=== PATIENT | female | born 2005 | race Hispanic/Latino ===

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

== ENCOUNTER 2025-06-24 16:15 | Emergency (ER) | payer OTHER, SELFPAY ==
[2025-06-24 16:30] VITALS: BP 109/62; PULSE 78; RESP 16; TEMP 36.9; O2SAT 100
--- NOTE | 2025-06-24 16:44 | ED.NAVMDI ---
HPI - Nausea/Vomiting/Diarrhea General Chief complaint: Nausea/Vomiting/Diarrhea Stated complaint: stomach issues Time Seen by Provider: 06/24/25 16:44 Source: patient Mode of arrival: ambulatory Limitations: no limitations History of Present Illness HPI Narrative: 20 yo F presents with c/o diarrhea for 1 wk. Bright red blood in stool for the past 2 to 3 days. Pain to LLQ constant with intermittent ABD cramping prior to episode of diarrhea. About 2 wks ago was very constipated. Took laxatives to have BM. hx of hemorrhoids but denies any hemorrhoids now. AFebrile. Does not have a PCP. All systems reviewed and negative except as noted above. Related Data Home Medications ?Medication ?Instructions ?Recorded ?Confirmed ?Last Taken ?Type No Home Medications 06/24/25 06/24/25 Unknown History Allergies Allergy/AdvReac Type Severity Reaction Status Date / Time No Known Allergies Allergy Mild Verified 06/24/25 16:43 [facility] Past Medical History Medical History (Updated 06/24/25 @ 17:01 by Millie Nunez NP) Paresthesia Left-sided headache Hemiplegic migraine Healthy female adult Surgical History Surgical History No history of previous surgery Family History Family History (Updated 09/13/23 @ 10:50 by Danielle Lozano) Grandparent Breast cancer Diabetes mellitus Father Alcoholism in family Mother Alcoholism in family Depression Sibling Depression Social History Social History (Updated 09/13/23 @ 10:51 by Danielle Lozano) Social History: Surrogate medical decision maker: Nubia Mcduffie, sister. Code status: Full code. Smoking status: Never smoker Second hand tobacco smoke exposure: No Alcohol intake: current Alcohol use details: Pt drinks Margaritas a couple times a month. 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 There is no relevant family history pertinent to the presenting complaint. Exam Narrative: GENERAL: This is a well-nourished, well-developed patient, in no apparent distress. HEAD: normocephalic, atraumatic. EYES: PERRL. Sclera clear/white. Vision is grossly intact. EARS: External ears normal NOSE: External nose normal NECK: Neck supple, non-tender without lymphadenopathy, masses or thyromegaly. CARDIOVASCULAR: Regular rate and rhythm without murmurs, gallops, or rubs. RESPIRATORY: Clear to auscultation. Breath sounds equal bilaterally. No wheezes, rales, or rhonchi. GASTROINTESTINAL: Abdomen soft, left lower quadrant tenderness, nondistended. Bowel sounds are hypoactive. No hepato-splenomegaly, or palpable masses. No guarding. SKIN: warm, Dry, intact with no suspicious lesions or rash, good texture and turgor. NEURO: awake, alert, and oriented to person, place and time. There were no obvious focal neurologic abnormalities. EXTREMITIES: No joint tenderness, effusion, or edema noted. Course Course Level of Care: Express Care Visit Vital Signs Vital signs: reviewed Transfer Transfered to: [facility] Transportation: Other (private vehicle) Transfer rationale: rule out diverticulitis. diarrhea for 1 wk, blood in stool for 3 days. LLQ pain Accepting physician: Dr. Rocha MDM - Nausea/Vomiting/Diarrhea MDM Narrative Medical decision making narrative: transferring patient to ER for CT scan to rule out diverticulitis. Diarrhea, blood in stool , left lower quadrant pain. Discharge Plan Discharge Clinical Impression: Bloody diarrhea, Acute left lower quadrant pain Patient Disposition: Acute Care Hospital Condition: Stable Patient Language: Marshallese Prescriptions: No Action No Home Medications Follow-up/Referrals: Hailey Arshad MD [Primary Care Provider, [facility]] Time of Disposition: 17:01
== END 2025-06-24 17:04 | disposition short-term general hospital (02) ==
PROVIDERS: Emergency Provider Nurse Practitioner Family; PCP Family Medicine
DX: R19.7 Diarrhea, unspecified (principal); R10.32 Left lower quadrant pain
CPT/HCPCS: 99212; G0463

== ENCOUNTER 2025-06-24 17:31 | Emergency (ER) | payer OTHER, SELFPAY ==
--- NOTE | ~2025-06-24 | CT_ITS ---
EXAMINATION: CT abdomen pelvis w con DATE: 06/24/2025 18:58 INDICATION: Bloody diarrhea TECHNIQUE: Computed tomography (CT) of the abdomen and pelvis was performed with 100 cc Omnipaque 350 intravenous contrast. The dose-length product was 563.52 mGy-cm. Automated exposure control and iterative reconstruction technique were employed. COMPARISON: None. FINDINGS: Lung bases are unremarkable. Heart size normal. No significant pleural or pericardial effusion. The liver, spleen, pancreas, adrenal glands and kidneys are unremarkable. Gallbladder is present. No lymphadenopathy. Nonobstructive bowel gas pattern. No focal bowel abnormality is seen. No abnormal pelvic masses or fluid collections. No acute osseous abnormality. IMPRESSION: 1. No acute abdominal abnormality. Reviewed, dictated and finalized at location O.
[2025-06-24 17:44] VITALS: BP 146/66; PULSE 100; RESP 16; TEMP 36.6; O2SAT 100
--- OUTSIDE RECORDS SUMMARY | 2025-06-24 18:16 | XMS_ITS | Clinical Summary ---
Author Organization [facility] [address] [place] [address] [address] [address] [place] [address] Care Team Providers Care Job Service Specialist Name Role Phone No, Physician Primary Care Provider Allergies No known active allergies Social History Tobacco Use Types Packs/Day Years Used Date Smoking Tobacco: Never Assessed Personal Safety Answer Date Recorded Have you ever been in or are you currently in a harmful physical or emotional relationship or is someone making you feel afraid or unsafe? 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 Gender Identity Not on file Sexual Orientation Not on file Obstetrics History Last Filed Vital Signs Vital Sign Reading Time Taken Comments Blood Pressure 108/51 03/23/2025 3:58 AM CDT Pulse 63 03/23/2025 3:58 AM CDT Temperature 36.4 C (97.6 F) 03/23/2025 3:58 AM CDT Respiratory Rate 18 03/23/2025 3:58 AM CDT Oxygen Saturation 100% 03/23/2025 3:58 AM CDT Inhaled Oxygen Concentration - - Weight 81.6 kg (180 lb) 03/23/2025 3:56 AM CDT Height 170.2 cm (5' 7) 03/23/2025 3:56 AM CDT Body Mass Index 28.19 03/23/2025 3:56 AM CDT Plan of Treatment Health Maintenance Due Date Last Done Comments Cervical Cancer Screening 2004 Depression Screening 2004 Hepatitis C Screening 2004 HPV Vaccines (1 - 3-dose series) 02/04/2019 Meningococcal B Vaccine (1 o f 2 - Standard) 2020 Regular Well Visit/Exam 18-64 02/04/2022 Covid-19 Vaccine (2023-2 5 season) 2024 11/12/2021, 03/17/2021, 02/24/2021 Influenza Vaccine (#1) 2025 DTaP/Tdap/Td Vaccine (7 - Td or Tdap) 07/24/2029 07/24/2019, 09/14/2008, 06/22/2006, Additional history exists Pneumococcal vaccine <65 Completed 005, 2004, 2004, Additional history exists Hepatitis B Screening Completed 06/22/2006 , 2004, 2004, Additional history exists Varicella Vaccines Completed 06/08/2009, 05/30/2005 Meningococcal Vaccine Completed 07/02/2021, 019 Additional Health Concerns Infection Onset Date Last Indicated MDR gram neg/ESBL Comment:Patients who received care at a healthcare facility outside of the [place] will be placed in Contact Precautions until infection or colonization with specific highly resistant bacteria can be ruled out. Infection Prevention will arrange screening. Please contact Infection Prevention. 03/23/2025 03/23/2025 Insurance [employer] COVENTRY HMO/POS [employer] COVENTRY HMO/POS Care Teams Job Service Specialist Relationship Specialty Start Date End Date No, Physician PCP - General 03/23/25
[2025-06-24 18:23] LABS: BEDSIDEPREGUCG Negative (Negative)
[2025-06-24 18:27] LABS: Hematocrit 42.4 % (37.0-47.0); Hemoglobin 13.7 g/dL (12.0-15.0); Immature Granulocyte Percent A 0.3 % (0-0.5); Lymphocytes Absolute Auto 3.56 K/mm3 (0.9-3.2); Mean Corpuscular HGB Conc 32.3 g/dl (32-36); Mean Corpuscular Hemoglobin 28.4 pg (26-34); Mean Corpuscular Volume 87.8 fl (80-100); Nucleated Red Blood Cells Absolute Auto 0.000 K/mm3 (0.0-0.012); Nucleated Red Blood Cells Perc 0.0 % (0.0-0.2); Platelet Count Result 344 k/mm3 (150-375); Red Blood Count 4.83 M/mm3 (4.2-5.4); White Blood Count 9.8 K/mm3 (4.5-10.0)
[2025-06-24 18:37] LABS: Add Urine Microscopic? NO; Appearance Urine Clear (Clear); Glucose Urine UA Negative (Negative); Leukocyte Esterase Ur Negative LEU/UL (Negative); Nitrate Urine Negative (Negative); Specific Grav Ur 1.017 (1.001-1.035)
[2025-06-24 18:38] LABS: Alanine Aminotransferase 21 U/L (6-35); Albumin Level 4.8 g/dL (3.5-5.1); Alkaline Phosphatase 64 U/L (38-126); Anion Gap 12 mmol/L (4-12); Aspartate Amino Transferase 32 U/L (14-36); Bilirubin,Total 0.4 mg/dL (0.2-1.3); Blood Urea Nitrogen 10 mg/dL (7-17); Calcium 9.2 mg/dL (8.4-10.2); Carbon Dioxide 22 mmol/L (22-30); Chloride 104 mmol/L (98-107); Estimated Glomerular Filt Rate > 60; Glucose 104 mg/dL (65-110); Lipase 126 U/L (23-300); Potassium 3.8 mmol/L (3.4-5.0); Sodium 138 mmol/L (137-145); Total Protein 8.5 g/dL (6.3-8.2)
--- NOTE | 2025-06-24 18:53 | ED.ABDPAIN ---
HPI - Abdominal Pain General Chief Complaint: Abdominal Pain Stated Complaint: CONSTIPATION,HEMORRHOIDS BLEEDING Time Seen by Provider: 06/24/25 18:07 Source: patient Mode of arrival: ambulatory Limitations: no limitations History of Present Illness HPI narrative: This is a 20-year-old female that presents to the emergency department for diarrhea. Ongoing over the last week. Seen in urgent care, sent to the ER for further evaluation. Reports left lower quadrant abdominal discomfort. Reports bright red blood per rectum. History of hemorrhoids. Denies fevers or vomiting Related Data Home Medications ?Medication ?Instructions ?Recorded ?Confirmed ?Last Taken ?Type No Home Medications 06/24/25 06/24/25 Unknown History Allergies Allergy/AdvReac Type Severity Reaction Status Date / Time No Known Allergies Allergy Mild Verified 06/24/25 17:32 Review of Systems Review of Systems: All systems reviewed & are unremarkable except as noted in HPI and below PMFSH Past Medical History Medical History (Updated 06/24/25 @ 19:45 by Racquel Briseno PA-C) Paresthesia Left-sided headache Hemiplegic migraine Healthy female adult Surgical History Surgical History No history of previous surgery Family History Family History (Updated 09/13/23 @ 10:50 by Danielle Lozano) Grandparent Breast cancer Diabetes mellitus Father Alcoholism in family Mother Alcoholism in family Depression Sibling Depression Social History Social History (Updated 09/13/23 @ 10:51 by Danielle Lozano) Social History: Surrogate medical decision maker: Nubia Mcduffie, sister. Code status: Full code. Smoking status: Never smoker Second hand tobacco smoke exposure: No Alcohol intake: current Alcohol use details: Pt drinks Margaritas a couple times a month. 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 HEAD: Normocephalic, atraumatic. EYES: EOMI. CHEST: Clear to auscultation. No respiratory distress. No wheezes rales or rhonchi HEART: Regular rate and rhythm. No murmur heard. Normal peripheral pulses. ABDOMEN: Soft, nontender, nondistended, normal active bowel sounds. EXTREMITIES: Normal range of motion. No edema. SKIN: Warm, dry, no rash. NEURO: No focal deficits. Alert and oriented x3. PSYCH: Normal mood and affect RECTAL: External hemorrhoid present, nonthrombosed, no active bleeding Course Course Emergency Course: patient updated on her workup and agrees with plan of care Vital Signs Vital signs: Vital Signs Temperature 97.9 F 06/24/25 17:44 Pulse Rate 100 06/24/25 17:44 Respiratory Rate 16 06/24/25 17:44 Blood Pressure 146/66 H 06/24/25 17:44 Pulse Oximetry 100 06/24/25 17:44 Oxygen Delivery Room Air 06/24/25 17:44 Temperature 97.9 F 06/24/25 17:44 Pulse Rate 93 06/24/25 19:19 Respiratory Rate 16 06/24/25 19:19 Blood Pressure 108/62 06/24/25 19:19 Pulse Oximetry 100 06/24/25 19:19 Oxygen Delivery Room Air 06/24/25 17:44 MDM - Abdominal Pain MDM Narrative Medical decision making narrative: Patient presents to the ER for diarrhea, blood in the stool. She is afebrile and nontoxic appearing. Her vitals are stable. Cbc without leukocytosis. Metabolic panel and lipase without concerning findings. Urine without evidence of infection. test is negative. CT abdomen pelvis without acute findings. Patient updated on workup and agrees with plan of care. She will be given follow-up with gastroenterology. She was given warnings to return to the ER Differential Diagnosis Differential diagnosis: Likely diverticulitis and other (colitis, fissure, hemorrhoid) Lab Data Attestation: I reviewed the patient's lab results. 06/24/25 18:13 06/24/25 18:13 Labs: Lab Results 06/24/25 06/24/25 06/24/25 Range/Units 18:13 18:14 18:19 WBC 9.8 (4.5-10.0) K/mm3 RBC 4.83 (4.2-5.4) M/mm3 Hgb 13.7 (12.0-15.0) g/dL Hct 42.4 (37.0-47.0) % MCV 87.8 (80-100) fl MCH 28.4 (26-34) pg MCHC 32.3 (32-36) g/dl RDW 13.4 (11.5-14.5) % Plt Count 344 (150-375) k/mm3 MPV 10.7 H (7.4-10.4) fl Immature Gran % (Auto) 0.3 (0-0.5) % Neut % (Auto) 53.7 (45.5-73.1) % Lymph % (Auto) 36.4 (18.3-44.2) % [place] % (Auto) 7.2 (2.6-8.5) % Eos % (Auto) 1.7 (0-4.4) % Baso % (Auto) 0.7 (0.2-1.2) % Lymph # (Auto) 3.56 H (0.9-3.2) K/mm3 [place] # (Auto) 0.7 H (0.1-0.6) K/mm3 Eos # (Auto) 0.2 (0-0.3) K/mm3 Baso # (Auto) 0.1 (0.0-0.1) K/mm3 Abs Immat Gran (auto) 0.03 (0.00-0.031) K/mm3 Absolute Neuts (auto) 5.3 (1.3-6.7) K/mm3 Absolute Nucleated RBC 0.000 (0.0-0.012) K/mm3 Nucleated RBC % 0.0 (0.0-0.2) % Sodium 138 (137-145) mmol/L Potassium 3.8 (3.4-5.0) mmol/L Chloride 104 (98-107) mmol/L Carbon Dioxide 22 (22-30) mmol/L Anion Gap 12 (4-12) mmol/L BUN 10 (7-17) mg/dL Creatinine 0.60 L (0.7-1.0) mg/dL Estim Creat Clear Calc Not Reportable Estimated GFR > 60 (59 - ) Glucose 104 (65-110) mg/dL Calcium 9.2 (8.4-10.2) mg/dL Total Bilirubin 0.4 (0.2-1.3) mg/dL AST 32 (14-36) U/L ALT 21 (6-35) U/L Alkaline Phosphatase 64 (38-126) U/L Total Protein 8.5 H (6.3-8.2) g/dL Albumin 4.8 (3.5-5.1) g/dL Lipase 126 (23-300) U/L Urine Color Yellow (Yellow) Urine Appearance Clear (Clear) Urine pH 7.5 (5.0-9.0) Ur Specific [place] 1.017 (1.001-1.035) Urine Protein Negative (Negative) mg/dL Urine Glucose (UA) Negative (Negative) mg/dL Urine Ketones Negative (Negative) mg/dL Ur Blood (Man) Negative (Negative) Urine Nitrate Negative (Negative) Urine Bilirubin Negative (Negative) Urine Urobilinogen 0.2 (<2.0) mg/dL Leukocyte Esterase Rfl Negative (Negative) ETHAN/UL POC Urine HCG, Qual Negative (Negative) Imaging Data Radiologist's impression: ITS Impressions Abdomen/Pelvis CT 06/24/25 19:01 IMPRESSION: 1. No acute abdominal abnormality. Critical Care Time Critical Care Time Critical Care Time: No Discharge Plan Discharge Clinical Impression: Bright red blood per rectum Diarrhea Qualifiers: Diarrhea type: unspecified type Qualified Code(s): R19.7 - Diarrhea, unspecified Patient Disposition: Home Condition: Stable Instructions: Acute Diarrhea (ED) Additional Instructions: Return to the ER if you experience fever, abdominal pain with nausea and vomiting, you are unable to keep down liquids or solids, or any other symptoms that are concerning to you Follow up with gastroenterology for further evaluation Patient Language: Northern Irish Prescriptions: No Action No Home Medications Follow-up/Referrals: PHYSICIAN,MOTEL FRONT DESK ATTENDANT [Primary Care Provider, Internal Medicine] Kelechi Henderson MD [Physician, Gastroenterology]
--- NOTE | 2025-06-24 19:17 | PC.NURSE ---
Received report from HATTIE Kendrick for cont. of care. Pt AOx4 lying on stretcher, respirations even and unlabored. Pt on cont. cardiac and pulse oximeter monitoring. Pt appears in NAD, VS WNL
[2025-06-24 19:19] VITALS: BP 108/62; PULSE 93; RESP 16; O2SAT 100
[2025-06-24 19:57] VITALS: BP 98/70; PULSE 82; RESP 18; TEMP 36.8; O2SAT 99
== END 2025-06-24 19:58 | disposition home or self-care (01) ==
PROVIDERS: Emergency Medicine; Emergency Provider Physician Assistant
DX: R19.7 Diarrhea, unspecified (principal); K62.5 Hemorrhage of anus and rectum
CPT/HCPCS: 36415; 74177; 80053; 81003; 81025; 83690; 85025; 99284; Q9967

== ENCOUNTER 2025-08-06 00:26 | Day surgery (SDC) | payer OTHER, SELFPAY ==
[2025-07-29 13:39] VITALS: BMI 31.1
--- OUTSIDE RECORDS SUMMARY | 2025-08-06 00:29 | XMS_ITS | Clinical Summary ---
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 03/23/2025 03/23/2025 Insurance [employer] HMO/POS [employer] [place] [address] Care Teams Analytical Data Miner Relationship Specialty Start Date End Date No, Physician PCP - General 03/23/25
[2025-08-06 10:48] VITALS: BP 123/72; PULSE 81; RESP 16; TEMP 36.6; O2SAT 99; BMI 30.6
[2025-08-06 11:03] LABS: BEDSIDEPREGUCG Negative (Negative)
[2025-08-06] MEDS: LACTATED RINGERS 1,000 ML 150 ML IV CONT (11:09)
--- NOTE | 2025-08-06 11:42 | P.PNAN_ITS ---
Anes - Initial Pre Proc Eval Procedure: Operation Date: 08/06/25 12:30 Proposed Procedures p EGD & Diagnostic Colonoscopy - Shiva Massey MD Date/Time: 08/06/25 11:42 Surgeon: Shiva Massey MD Pre Op Diagnosis: Early satiety, GERD,rectal bleeding Patient Data Age: 20 Gender: F Height: 1.7 m Weight: 88.6 kg Last Vital Signs Temp 97.9 F 08/06/25 10:48 Pulse 81 08/06/25 10:48 Resp 16 08/06/25 10:48 BP 123/72 08/06/25 10:48 Pulse Ox 99 08/06/25 10:48 O2 Del Method Room Air 08/06/25 10:48 Allergies Allergy/AdvReac Type Severity Reaction Status Date / Time No Known Allergies Allergy Mild Verified 08/06/25 10:54 Home Medications ?Medication ?Instructions ?Recorded ?Confirmed ?Type No Home Medications 06/24/25 07/29/25 H istory Laboratory Tests 08/06/25 11:01 POC Urine HCG, Qual Negative (Negative) Patient hx anesthesia problems: none Family hx anesthesia problems: none Results Review: All pre-operative results and documents have been reviewed as part of the pre- operative evaluation. [facility] Past Medical History Medical History Paresthesia Left-sided headache Hemiplegic migraine Healthy female adult Surgical History Surgical History No history of previous surgery Family History Family History Grandparent Breast cancer Diabetes mellitus Father Alcoholism in family Mother Alcoholism in family Depression Sibling Depression Social History Social History Social History: Surrogate medical decision maker: Nubia Mcduffie, sister. Code status: Full code. Years smoked: 5 Smoking status: Never smoker Tobacco type: e-cigarettes/vaping Second hand tobacco smoke exposure: No Alcohol intake: current Alcohol use details: Pt drinks Margaritas a couple times a month. 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 Gender identity (if verbalized by the patient): Female Sexual Orientation (if Verbalized by the Patient): Straight or Heterosexual Spiritual care concerns: No Anes - Eval Final PreProcedure Day of Procedure 08/06/25 11:42 Patient weight: normal Lungs: normal air movement Airway: Mallampati scale class II Neurological: alert and oriented Last oral intake: >/= 8 hours ASA classification: II Emergent: no Anesthetic plan: proceed Anesthesia type and monitoring: general GIVS and standard monitoring Results Review: All pre-operative results and documents have been reviewed as part of the pre- operative evaluation. Obesity, smoker, /vapes and cannabis daily. Hx of hemiplegic migranes. Informed Consent: The patient's anesthetic plan and its attendant risks and benefits were discussed with the patient/family/POA. Questions were solicited and answers provided to the satisfaction of the patient/family/POA.
--- NOTE | 2025-08-06 11:55 | WPDHPUPDATE1 ---
History and Physical Update Update Date/Time: 08/06/25 11:55 History and Physical has been reviewed, including an updated exam of the patient. There are NO changes in the patient's condition. Risks, benefits, and alternatives have been discussed and questions answered. Patient agrees to proceed with procedure.
[2025-08-06] MEDS: BENZOCAINE (*SP) 60 ML SPRAY CAN (HURRICAINE) 1 SPRAY MUCOUS MEM (12:02)
--- NOTE | 2025-08-06 12:11 | SUR.OPER ---
EGD ended at 1207, colon began at 1211.
--- NOTE | 2025-08-06 12:19 | S_PTH ---
PATIENT: Arlene Haynes LOC: [facility]#:[id number] AGE/SX: 20/F ROOM: RE08/06/[address]: Shiva Massey MD : 2005 BED: DIS: 08/06/2025 SPEC #: [id number] RECD: 08/06/25 13:08 STATUS: CATY RETrue #: [id number] CHICO: 08/06/25 12:[address]: Shiva Massey DEPT: [facility] Surgical RECD BY: Angelina Ariza ENTERED: 08/06/25 13:08 SP TYPE: Surgical OTHR DR: CARCASS SPLITTER PHYSICIAN Tissues: A - Small Bowel Bx B - Gastric Biopsy Procedures: Hematoxylin and Eosin Stain Gross and Microscopic Level 4
[2025-08-06 12:24] VITALS: BP 87/51; PULSE 84; RESP 18; O2SAT 99
[2025-08-06 12:34] VITALS: BP 100/70; PULSE 66; RESP 16; O2SAT 100
[2025-08-06 12:44] VITALS: BP 99/67; PULSE 62; RESP 19; O2SAT 100
== END 2025-08-06 12:58 | disposition home or self-care (01) ==
PROVIDERS: Anesthesiology; Referring Provider Nurse Practitioner; Visit Provider Internal Medicine Gastroenterology
PROC: 0DJ08ZZ Inspection of Upper Intestinal Tract, Via Natural or Artificial Opening Endoscopic (ICD-10-PCS; CPT 45378; principal; 2025-08-06 12:30)
DX: K92.1 Melena (principal); K64.8 Other hemorrhoids
CPT/HCPCS: 45378; 43239; 88305; J2003; J2704; J7120